=== PATIENT | male | born 1955 | race Caucasian/White ===

== ENCOUNTER 2017-01-21 06:14 | Emergency (ER) | payer OTHER, MEDICAID ==
[2017-01-21 06:30] VITALS: TEMP 97.7
[2017-01-21 06:37] VITALS: O2SAT 97
--- NOTE | 2017-01-21 06:40 | C.PDOC ---
History Of Present Illness <Corinne Cagle - Last Filed: 01/21/17 06:49> <RobertToy dean - Last Filed: 01/21/17 09:13> 60 Y/O MALE, PMHX HTN, PRESENTS TO ED ACCOMPANIED BY SON, C/O MILD SHORTNESS OF BREATH SINCE THIS MORNING. DENIES CHEST PAIN, COUGH, FEVER, CHILLS. PT STATES NOT SOB AFFECTED BY LAYING DOWN OR EXERTION. NO OTHER CARDIAC HISTORY. (Corinne Cagle) History Per: Patient History/Exam Limitations: no limitations Onset/Duration Of Symptoms: Hrs Current Symptoms Are (Timing): Still Present Exacerbating Factor(s): denies: Exertion, Laying Flat Associated Symptoms: denies: Fever, Chills, Chest Pain, Anxiety <Corinne Cagle - Last Filed: 01/21/17 06:49> <RobertToy dean - Last Filed: 01/21/17 09:13> Time Seen by Provider: 01/21/17 06:39 Chief Complaint (Nursing): Shortness Of Breath Past Medical History Reviewed: Historical Data, Nursing Documentation, Vital Signs - Medical History PMH: HTN Family History: States: Unknown Family Hx - Social History Hx Alcohol Use: No Hx Substance Use: No - Immunization History Hx Tetanus Toxoid Vaccination: No Hx Influenza Vaccination: No Hx Pneumococcal Vaccination: No <Corinne Cagle - Last Filed: 01/21/17 06:49> Review Of Systems Except As Marked, All Systems Reviewed And Found Negative. Constitutional: Negative for: Fever, Chills Cardiovascular: Negative for: Chest Pain Respiratory: Positive for: Shortness of Breath. Negative for: Cough Gastrointestinal: Negative for: Nausea, Vomiting, Abdominal Pain Skin: Negative for: Rash Neurological: Negative for: Headache, Dizziness <Corinne Cagle - Last Filed: 01/21/17 06:49> Physical Exam - Physical Exam Appears: Non-toxic, No Acute Distress Skin: Warm, Dry Head: Atraumatic, Normacephalic Oral Mucosa: Moist Chest: Symmetrical Cardiovascular: Rhythm Regular, No Murmur Respiratory: Normal Breath Sounds, No Accessory Muscle Use, No Rales, No Rhonchi , No Wheezing Gastrointestinal/Abdominal: Soft, No Tenderness Back: Normal Inspection Extremity: Normal ROM, No Pedal Edema, Capillary Refill (< 2 SEC. ), No Swelling Neurological/Psych: Oriented x3, Normal Speech, Normal Cognition <Corinne Cagle - Last Filed: 01/21/17 06:49> ED Course And Treatment ECG: Interpreted By Me ECG Rhythm: Sinus Rhythm Rate From EC (BPM) O2 Sat by Pulse Oximetry: 97 (RA) Pulse Ox Interpretation: Normal <Corinne Cagle - Last Filed: 01/21/17 06:49> - Laboratory Results Result Diagrams: 01/21/17 06:58 01/21/17 06:58 <Toy Blackburn - Last Filed: 01/21/17 09:13> Progress <Corinne Cagle - Last Filed: 01/21/17 06:49> <Toy Blackburn - Last Filed: 01/21/17 09:13> - Re-Evaluation Re-evaluation Note: 01/21/17 06:43 EKG, CXR, BLOODWORK ORDERED. (GurjitCorinne) Disposition <Corinne Cagle - Last Filed: 01/21/17 06:49> Counseled Patient/Family Regarding: Diagnosis, Need For Followup - Disposition Disposition Time: 08:29 <Toy Blackburn - Last Filed: 01/21/17 09:13> - Disposition Disposition: HOME/ ROUTINE Condition: STABLE Additional Instructions: Follow up with PMD in the next 2 - 4 days Prescriptions: Albuterol HFA [Ventolin HFA 90 mcg/actuation (8 g)] 1 puff IH QID PRN #1 puff PRN Reason: Cough Instructions: Dyspnea (ED) - Clinical Impression Clinical Impression: Dyspnea - Scribe Statement The provider has reviewed the documentation as recorded by the Scribe <Corinne Cagle - Last Filed: 01/21/17 06:49> <Toy Blackburn - Last Filed: 01/21/17 09:13> - Scribe Statement Guille Guaman Provider Scribe Attestation: All medical record entries made by the Scribe were at my direction and personally dictated by me. I have reviewed the chart and agree that the record accurately reflects my personal performance of the history, physical exam, medical decision making, and the department course for this patient. I have also personally directed, reviewed, and agree with the discharge instructions and disposition. (Corinne Cagle) Physician Patient Turnover Patient Signed Over To: Toy Blackburn Handoff Comments: FU LABS, CXR, DISPO <GurjitCorinne - Last Filed: 01/21/17 06:49> Addendum <Corinne Cagle - Last Filed: 01/21/17 06:49> <Toy Blackburn - Last Filed: 01/21/17 09:13> Addendum: Hx and Pe reviewed Heart RR (-)mummer, Lungs clear Pt feeling better ambulated in the ED without SOB cxr and labs unremarkable Result discussed with pt and family, cause not clear at this time. Plan will rx mdi as trial and f/u with PCP (Toy Blackburn)
[2017-01-21 07:01] LABS: BASO # 0.1 K/uL (0.0-0.2); BASO % 1.4 % (0.0-2.0); EOS # 0.3 K/uL (0.0-0.7); EOS % 7.2 % (0.0-4.0); HEMATOCRIT 42.4 % (35.0-51.0); LYMPH # 1.8 K/uL (1.0-4.3); LYMPH % 42.1 % (20.0-40.0); MEAN CELL VOLUME 95.1 fL (80.0-94.0); MEAN CORPUSCULAR HEMOGLOBIN 32.1 pg (27.0-31.0); MEAN CORPUSCULAR HGB CONC 33.7 g/dL (33.0-37.0); MEAN PLATELET VOLUME 9.5 fL (7.2-11.7); MONO # 0.4 K/uL (0.0-0.8); MONO % 8.5 % (0.0-10.0); RED CELL DISTRIBUTION WIDTH 13.2 % (11.5-14.5); WHITE BLOOD COUNT 4.2 K/uL (4.8-10.8)
[2017-01-21 07:16] LABS: CHLORIDE 103 mmol/L (98-107); SODIUM 140 mmol/L (132-148)
[2017-01-21 07:17] LABS: POTASSIUM 4.3 mmol/L (3.6-5.2)
[2017-01-21 07:19] LABS: ALB/GLOB RATIO 1.2 (1.0-2.1); ALKALINE PHOSPHATASE 50 U/L (38-126); AST/SGOT 31 U/L (17-59); BILIRUBIN,TOTAL 0.7 mg/dL (0.2-1.3); CARBON DIOXIDE 25 mmol/L (22-30); GFR AFRICAN-AMERICAN > 60; TOTAL PROTEIN 7.1 g/dL (6.3-8.3)
[2017-01-21 07:20] VITALS: BP 152/92
[2017-01-21 07:20] LABS: ALT/SGPT 28 U/L (21-72); BLOOD UREA NITROGEN 18 mg/dL (9-20); CALCIUM 8.4 mg/dl (8.6-10.4); GLUCOSE,RANDOM 141 mg/dL (75-110)
[2017-01-21 08:28] VITALS: PULSE 72; RESP 18
--- NOTE | 2017-01-21 09:00 | RAD ---
PROCEDURE: CHEST RADIOGRAPH, 1 VIEW HISTORY: Shortness of breath COMPARISON: None available. FINDINGS: LUNGS: Mild venous congestion. Right hilar prominence. Patchy increased markings at the left lung base. PLEURA: No pneumothorax or pleural fluid seen. CARDIOVASCULAR: Normal. OSSEOUS STRUCTURES: No significant abnormalities. VISUALIZED UPPER ABDOMEN: Normal. OTHER FINDINGS: None. IMPRESSION: Mild venous congestion. Right hilar prominence. Patchy increased markings at the left lung base.
--- NOTE | 2017-01-22 12:05 | CARD ---
APPROVED REPORT EKG Measurement Heart [id number] <Conclusion> Normal sinus rhythm Possible Inferior infarct, age undetermined Abnormal ECG
== END 2017-01-21 08:44 | disposition home or self-care (01) ==
LOC: C.ER 06:14
DX: R06.00 Dyspnea, unspecified (principal)